=== PATIENT | female | born 1960 | race Caucasian/White ===

== ENCOUNTER 2017-09-23 06:59 | Day surgery (SDC) | payer OTHER ==
[~2017-09-23 06:59] MED LIST: AMITIZA24 MCG PO; CIPROFLOXACIN750 MG PO; CLONAZEPAM1 MG PO; COLACE100 MG PO; INTELENCE PO; METHYLPRED4 MG/DOSE- PO; NEURONTIN800 MG PO; PERCOCET 5/3251 TAB PO; PROZAC20 MG PO; RALTEGRAVIR; STRIBILD TABLE1 EACH PO; XANAX2 MG; [UNRECOGNIZED DRUG - OTHER]; [UNRECOGNIZED DRUG - OTHER] PO
== END 2017-09-23 16:36 | disposition home or self-care (01) ==
LOC: CIR.AMB 06:59
DX: M75.121 Complete rotator cuff tear or rupture of right shoulder, not specified as traumatic (principal); M24.111 Other articular cartilage disorders, right shoulder; M75.21 Bicipital tendinitis, right shoulder

== ENCOUNTER 2017-12-10 10:58 | Outpatient (CLI) | payer OTHER | END 2017-12-10 13:16 | disposition home or self-care (01) | LOC: RAD 10:58 | DX: M51.36 Other intervertebral disc degeneration, lumbar region (principal); Z98.1 Arthrodesis status ==

== ENCOUNTER 2018-11-25 12:31 | Emergency (ER) | payer OTHER ==
[~2018-11-25] VITALS: Ht 160 cm; Wt 62.1 kg
[2018-11-25] MEDS ORDERED: GENVOYA TABLET1 EACH (12:58)
[2018-11-25] MEDS ORDERED: XANAX XR2 MG (12:58)
== END 2018-11-25 16:25 | disposition home or self-care (01) ==
LOC: ER 12:31
DX: K29.70 Gastritis, unspecified, without bleeding (principal)